=== PATIENT | female | born 1985 | race African-American/Black ===

== ENCOUNTER 2023-01-13 10:07 | Outpatient (AMB) | payer OTHER, SELFPAY ==
--- NOTE | 2023-01-13 10:12 | A.OFFVIS_ITS ---
Intake Vital Signs 01/13/23 10:16 Height 5 ft 1 in Weight 274 lb BMI 51.8 BP 108/78 Blood Pressure Location Rt brachial Position Sitting Pulse 84 Pulse Source Pulse Oximeter Pulse Oximetry (%) 97 Oxygen Delivery Method Room Air Intake Visit Reasons: [employer] [facility] [facility]: Headache Intake Note: Patient presents for seizures. Patient states The most recent seizure I had convulsion 2 weeks apart and I've never had convulsion, I have what you call, conscious seizures. . Allergies amoxicillin Allergy (Mild, Verified 01/13/23 10:18) thrush lactose Allergy (Unknown, Verified 01/06/23 10:39) Unknown simvastatin Allergy (Unknown, Verified 01/06/23 10:39) Unknown Medication List - Last Reconciled 01/13/23 by TERRY Jon amitriptyline 10 mg PO BEDTIME aspirin 500 mg PO Q6H cetirizine 10 mg PO DAILY cholecalciferol (vitamin D3) 50 mcg PO DAILY colchicine (gout) 0.6 mg PO BID ezetimibe (Zetia) 10 mg PO DAILY metformin 500 mg PO DAILY rosuvastatin mg PO HPI HPI Comments History of Present Illness Details Right-handed 37-yr-old female presents for new pt evaluation of seizure and headache disorder. Pt reports in approx [id number], she developed right sided headaches, right- sided weakness, which were not responding to conservative treatments. Then she started having episodes of right eye vision loss and then right optic nerve i nflammation. Brain MRI showed right frontal brain tumor. She underwent tumor resection by Dr Felisha Joe, which was shown to be a malignant meningioma, and she then had 8-9 week course of radiation. Approx a year later, she started having episodes of bilateral finger stiffness not a/w LOC. EEG- showed intracerebral irritability. Dr Durán diagnosed her w/ epilepsy, and started her on Keppra. After she started Keppra, she would have conscious seizures - she would feel weak, dazed, limp, needs to lay down x's 5 minutes, afterwards she feels ok but maybe a bit sleepy. This would occur 1-2 x's every 5 months. When frequency would increase, her Keppra was increased to 1,000mg bid and since she would just have a rare episode. Pt states that everything was going well, until October 2022, she was on vacation in [place], getting ready to go to bed, was standing up looking at the TV, sat down, and next thing she knows she is sitting on the edge of the bed, feeling confused, her shoulders were jerking, her feet felt heavy. She was able to walk to the room across the vargas. She was tapping her cousin, her cousin told her that her hands were cold and clenched, she was repeatedly tapping, not responding to her name, her head started jerking back and forth, and the whole body started shaking. She did vomit some, but no tongue biting or incontinence. The episode lasted 10-15 minutes. The next thing pt knew, she was in the [facility] ER. In the ER, she was monitored, she had head CT and was discharged on her usual regimen. Then once home, a week later, she had another similar episode, she was in her own bed. The collections technician had to give a shot to stop the seizure and she required intubation to maintain her airway. After the episode, she was very sleepy. She was admitted to [facility]. Had MRI- showed stable right- fraontal post-surgical changes, as well as bilateral cerebral microhemorhhages d/t ? hx radiation, amyloid angiopathy, vasculitis. Work-up was otherwise unremarkable for systemic or infectious etiology of breakthrough convulsive seizures. Keppra was increased to 1500mg bid and topiramate and amitriptyline was resumed. Her last EEG was in [id number]. After the meningioma resection, she developed right-sided to holocranial migraine and photophobia. Frequency varies- usually 3 times per month, but since October when she started Ibuprofen 800mg tid w/ colchicine 0.6mg bid for pericarditis she has not had a single migraine attack. She also developed right eye twitch, which Dr Matthews ordered low dose Amitriptyline for, which helps. Current acute medication use/interventions: Nothing prn Previous acute medication use: Sumatriptan- did not tolerate- causes her to be whoozy and tired. Current preventative medication use: Ibuprofen scheduled. Previous preventative medication use: Topiramate - was helpful, but has run out again. Trigger point injections- not tolerated. Non-pharmacological interventions: Ice cap. 01/02/23 WBC 4.9 RBC ?3.99 Hgb ?10.4 Hct ?33.5 MCV 84.0 Sodium 142 Potassium ?3.5 Chloride ?111 Bicarbonate Level ?19 Anion Gap 12 Glucose Level 78 BUN 7 Creatinine-Blood 0.5 Estimated GFR Crea tinine *122 Calcium ?7.3 Calcium, Ionized p H Corrected ?1.05 Magnesium 1.6 Protein, Total ?5.2 Albumin ?3.2 AG Ratio 1.6 Alkaline Phosphata se 76 Lipase 16 AST (SGOT) 14 ALT (SGPT) 13 Bilirubin, Total 0.2 C-Reactive Protein <0.3 11/21/22, MRI Brain W+W/O Contrast MRI Brain W+W/O Contrast COMPARISON: MRI brain 01/09/2011. FINDINGS: BRAIN and EXTRA-AXIAL SPACES: There has been prior right frontal craniotomy. There is dural thickening and enhancement subjacent to the craniotomy flap, measuring up to 2 mm in thickness. This is roughly similar to the prior examination of 2010 allowing for difference in imaging technique. No new nodularity is seen. There is underlying encephalomalacia in the right superior frontal lobe, with cortical defect and adjacent T2 prolongation compatible with gliosis. There is ex vacuo dilatation of the right lateral ventricle. No other abnormal intracranial enhancement is seen. There is no mass effect, midline shift, or effacement of the basal cisterns. On diffusion weighted imaging, there are no regions of restricted diffusion to indicate an acute or subacute infarct. On susceptibility weighted imaging, there are innumerable punctate foci of susceptibility artifact in bilateral cerebral hemispheres, predominantly in the frontal white matter bilaterally, with several additional foci of more posteriorly in the centrum semiovale and periatrial white matter. There is no space-occupying or acute hematoma. Few small foci of T2 prolongation are noted in the subcortical and deep white matter, nonspecific. The midline structures are unremarkable. Mesial temporal lobes appear normal and symmetric in size, signal, and contour. No cortical malformation or heterotopia is seen. Ventricles, cisterns, and sulci are mildly prominent, consistent with mild volume loss greatest in the right frontal lobe, without hydrocephalus. No abnormal extra-axial fluid collections are seen. Major intracranial flow voids are present. EXTRACRANIAL SOFT TISSUES: Orbits are unremarkable. Paranasal sinuses and mastoids are unremarkable. BONES: Marrow signal is preserved. IMPRESSION: 1. Right frontal post surgical changes again noted, with smooth dural thickening and enhancement subjacent to the craniotomy which appears grossly similar to 2011, likely chronic granulation tissue. No new nodularity or mass effect. 2. Encephalomalacia in the underlying r ight frontal lobe with areas of cortical disruption and gliosis also appears similar to prior. 3. Innumerable punctate foci of microhe morrhage in the brain bilaterally, greatest in bilateral frontal lobes. Correlate with any clinical history of radiation. Differential considerations also include embolic disease, prior trauma, vasculitis or other small vessel pathology; while cerebral amyloid angiopathy can have this appearance, it would be unlikely in this demographic. No space-occupying hematoma. PFSH Medical History (Updated 01/13/23 @ 21:49 by TERRY Jon) HLD (hyperlipidemia) Surgical History (Updated 01/13/23 @ 10:22 by CUAUHTEMOC Rebollar) H/O knee surgery H/O brain surgery H/O section Hx of bilateral breast reduction surgery Hx laparoscopic cholecystectomy Family History (Updated 01/13/23 @ 10:23 by CUAUHTEMOC Rebollar) Maternal Grandmother Breast cancer in female Maternal Grandfather Cancer, colon Father Heart attack Son Seizure Diabetes Autism Social History (Updated 01/13/23 @ 10:23 by CUAUHTEMOC Rebollar) Alcohol intake: never Patient Tobacco Use Status: Never used Tobacco Review of Systems Const Details: See scanned ROS form Physical Exam Vital Signs: Last Vital Signs Pulse 84 01/13/23 10:16 BP 108/78 01/13/23 10:16 Pulse Ox 97 01/13/23 10:16 Oxygen Delivery Method Room Air 01/13/23 10:16 BMI result Body Mass Index 51.8 Const Orientation/consciousness: patient oriented x3 HEENT Other: No palpable scalp tenderness. Resp Effort & Inspection: normal respiratory effort and able to speak in complete sentences Neuro General: patient oriented x3 Cranial nerves: Yes CN's II-XII intact bilaterally Cognition (Neuro): normal cognition Gait exam (Neuro): Normal gait present Motor exam (neuro): 5/5 motor strength present throughout Deep tendon reflexes (DTR's): Right triceps reflex intensity grade: 2+, Left triceps reflex intensity grade: 2+, Rt Biceps (C5, C6): 2+, Left biceps reflex intensity grade: 2+, Right brachioradialis reflex intensity grade: 2+, Left brachioradialis reflex intensity grade: 2+, Right patellar reflex intensity grade: 2+ and Left patellar reflex intensity grade: 2+ Coordination: [id number] test normal and Romberg test negative Pupils: Normal pupillary reactivity/response: bilateral Psych Appearance: grossly normal Mental Status: mental status grossly normal Speech and movement: Normal speech and movement present Affect: normal affect Attitude: cooperative Thought process: Normal thought process present Assessment & Plan Assessment & Plan (1) Seizure disorder: Code(s): G40.909 - Epilepsy, unspecified, not intractable, without status epilepticus (2) History of brain tumor: Comment: s/p resection and radiation Code(s): Z87.898 - Personal history of other specified conditions (3) Migraine without aura: Code(s): G43.009 - Migraine without aura, not intractable, without status migrainosus (4) Pericarditis: Code(s): I31.9 - Disease of pericardium, unspecified (5) Snoring: Code(s): R06.83 - Snoring (6) Sleep difficulties: Code(s): G47.9 - Sleep disorder, unspecified (7) Fatigue: Code(s): R53.83 - Other fatigue Plan Pt advised to undergo In-lab PSG to assess for sleep apnea in setting of pt w/ BMI > 50. Pt advised to undergo EEG Pt advised to undergo f/u brain MRI w/wo- to assess for any progression of bilateral cerebral microhemorhages- due between Feb 2023-May 2023 For seizure: Continue Keppra 1500mg q 12hrs Will supply small supply of Clonazepam 2mg ODT for breakthrough seizure lasting > 2 min. For migraine: Continue Amitriptyline 10mg qhs Resume Topiramate up to 50mg bid- may help reduce seizure risk as well. [place] contraindications- Triptans d/t seizure activity Future considerations- Gepant. Orders: Orders EEG electroencephalogram 01/13/23 G40.909 - Epilepsy, unspecified, not intractable, without status epilepticus RT PSG in-lab sleep study 01/13/23 G40.909 - Epilepsy, unspecified, not intractable, without status epilepticus, R06.83 - Snoring, G47.9 - Sleep disorder, unspecified, R53.83 - Other fatigue, E66.01 - Morbid (severe) obesity due to excess calories, Z68.43 - Body mass index [BMI] 50.0-59.9, adult MR head/brain wo/w con 02/26/23 R90.89 - Other abnormal findings on diagnostic imaging of central nervous system, Z87.898 - Personal history of other specified conditions, G40.909 - Epilepsy, unspecified, not intractable, without status epilepticus, G43.009 - Migraine without aura, not intractable, without status migrainosus Medications: New topiramate 1 tab qhs x's 1 wk, 1 tab bid x's 1 wk, 2 tabs bid orally bedtime; 120 tabs 3RF 30 days clonazepam 1 tab in cheek prn seizure lasting > 2 minutes, MR x's 1 translingually . PRN; 5 tabs 2RF seizures 30 days MDD 2 Coding Level of Care Code New Pt Level 4 (49482) Diagnoses Seizure disorder G40.909 History of brain tumor Z87.898 Migraine without aura G43.009 Pericarditis I31.9 Snoring R06.83 Sleep difficulties G47.9 Fatigue R53.83
[2023-01-13 10:16] VITALS: BP 108/78; PULSE 84; O2SAT 97; BMI 51.8
== END 2023-01-13 11:30 | disposition home or self-care (01) ==
PROVIDERS: Visit Provider Nurse Practitioner Family
DX: G40.909 Epilepsy, unspecified, not intractable, without status epilepticus (principal); Z87.898 Personal history of other specified conditions; G43.009 Migraine without aura, not intractable, without status migrainosus; I31.9 Disease of pericardium, unspecified; R06.83 Snoring; G47.9 Sleep disorder, unspecified; R53.83 Other fatigue
CPT/HCPCS: 99204

== ENCOUNTER → 2023-01-13 10:07 | Outpatient (BNVA) | payer OTHER, SELFPAY | PROVIDERS: Visit Provider Nurse Practitioner Family ==

== ENCOUNTER 2023-02-19 13:05 | Outpatient (REF) | payer OTHER, SELFPAY ==
--- NOTE | 2023-02-19 13:10 | EEG_ITS ---
This is a 16-channel EEG with an EKG lead. The patient is reported awake during the tracing. Background EEG rhythm is 14-20 hertz 5 to 30 microvolt posteriorly and lower amplitude fast anteriorly. Photic stimulation does not produce any significant abnormality. Hyperventilation is not performed. Cardiac lead does not reveal any significant abnormality. No sharp wave spikes or paroxysmal tendency noted. IMPRESSION: No significant abnormality noted on this EEG. MD PAMELA Casas/BANDAR / [id number]
== END 2023-02-19 13:06 | disposition home or self-care (01) ==
LOC: HO.NEURO 13:05
PROVIDERS: PCP Internal Medicine; Visit Provider Nurse Practitioner Family
DX: G40.909 Epilepsy, unspecified, not intractable, without status epilepticus (principal)
CPT/HCPCS: 95816

== ENCOUNTER → 2023-03-02 20:30 | Outpatient (BNV) | payer OTHER, SELFPAY | PROVIDERS: PCP Internal Medicine; Visit Provider Psychiatry & Neurology Neurology | DX: R06.83 Snoring (principal) | CPT/HCPCS: 95810 ==

== ENCOUNTER → 2023-03-02 21:09 | Outpatient (REF) | payer OTHER, SELFPAY | LOC: HO.SL 21:09 | PROVIDERS: PCP Internal Medicine; Visit Provider Nurse Practitioner Family | DX: G47.9 Sleep disorder, unspecified (principal); R06.83 Snoring; G40.909 Epilepsy, unspecified, not intractable, without status epilepticus | CPT/HCPCS: 95810 ==

== ENCOUNTER 2023-03-25 09:04 | Outpatient (REF) | payer OTHER, SELFPAY | END 2023-03-25 09:05 | disposition home or self-care (01) | LOC: HO.MRI 09:04 | PROVIDERS: PCP Internal Medicine; Visit Provider Nurse Practitioner Family | DX: Z13.89 Encounter for screening for other disorder (principal) ==

== ENCOUNTER 2023-04-24 12:54 | Outpatient (AMB) | payer OTHER, SELFPAY ==
[2023-04-24 13:05] VITALS: BP 118/80; PULSE 82; O2SAT 97; BMI 51.1
--- NOTE | 2023-04-24 13:05 | A.OFFVIS_ITS ---
Intake Vital Signs 04/24/23 13:05 Height 5 ft 1 in Weight 270 lb 8 oz BMI 51.1 BP 118/80 Blood Pressure Location Rt brachial Position Sitting Pulse 82 Pulse Source Pulse Oximeter Pulse Oximetry (%) 97 Oxygen Delivery Method Room Air Intake Visit Reasons: 3 mnts f/u for migraines-LVM Intake Note: Patient presents for 3 mo fu- Migraines. Rotary Adjuster Required: No Accompanied by: Self / Same As Patient Allergies amoxicillin Allergy (Mild, Verified 04/24/23 13:09) thrush lactose Allergy (Unknown, Verified 04/24/23 13:09) Unknown simvastatin Allergy (Unknown, Verified 04/24/23 13:09) Unknown Medication List - Last Reconciled 04/24/23 by TERRY Jon amitriptyline 10 mg PO BEDTIME aspirin 500 mg PO Q6H cetirizine 10 mg PO DAILY cholecalciferol (vitamin D3) 50 mcg PO DAILY clonazepam 1 tab in cheek prn seizure lasting > 2 minutes, MR x's 1 translingually . PRN; 30 days MDD 2 ezetimibe (Zetia) 10 mg PO DAILY metformin 500 mg PO DAILY rosuvastatin mg PO topiramate 25 mg PO BEDTIME HPI HPI Comments History of Present Illness Details 37-yr-old female presents for f/u visit. No recent pericarditis s/s. She was advised she could stop colchicine. She did have f/u testing for lupus- so far work-up has been negative. Pt is noticing more headaches, which she attributes to not being able to sleep d/t having new noisy neighbors. She is now having 4 migraine days per week. She is compliant w/ Topiramate and Amitriptyline. Using Excedrin 2 tabs prn. No interval seizure activity. Compliant w/ Keppra 1500mg bid. She was unable to do the brain MRI- was claustrophobic. Her PSG was normal- AHI 1/hr w/ O2 dee 93%. EEG- normal PFSH Medical History (Updated 01/13/23 @ 21:49 by TERRY Jon) HLD (hyperlipidemia) Surgical History H/O knee surgery H/O brain surgery H/O section Hx of bilateral breast reduction surgery Hx laparoscopic cholecystectomy Family History Maternal Grandmother Breast cancer in female Maternal Grandfather Cancer, colon Father Heart attack Son Seizure Diabetes Autism Social History Alcohol intake: never Patient Tobacco Use Status: Never used Tobacco Review of Systems Const All systems reviewed & are unremarkable except as noted in HPI and below Physical Exam Vital Signs: Last Vital Signs Pulse 82 04/24/23 13:05 BP 118/80 04/24/23 13:05 Pulse Ox 97 04/24/23 13:05 Oxygen Delivery Method Room Air 04/24/23 13:05 BMI result Body Mass Index 51.1 Const General: cooperative and no acute distress Orientation/consciousness: patient oriented x3 HEENT Head: Yes normocephalic Resp Effort & Inspection: normal respiratory effort and able to speak in complete sentences Neuro General: patient oriented x3, gait normal and CN's II-XI intact bilaterally Cognition (Neuro): normal cognition Motor exam (neuro): 5/5 motor strength present throughout Psych Appearance: grossly normal Mental Status: mental status grossly normal Speech and movement: Normal speech and movement present Affect: normal affect Attitude: cooperative Thought process: Normal thought process present Thought content: Normal thought content present Insight: Good insight present (Psych) Judgement: Good judgement present (Psych) Assessment & Plan Assessment & Plan (1) Migraine without aura: Code(s): G43.009 - Migraine without aura, not intractable, without status migrainosus (2) Seizure disorder: Code(s): G40.909 - Epilepsy, unspecified, not intractable, without status epilepticus (3) History of brain tumor: Comment: s/p resection and radiation Code(s): Z87.898 - Personal history of other specified conditions (4) Abnormal brain MRI: Code(s): R90.89 - Other abnormal findings on diagnostic imaging of central nervous system (5) Sleep difficulties: Code(s): G47.9 - Sleep disorder, unspecified Plan Reviewed In-lab PSG - normal. Pt advised to undergo EEG Pt again advised to undergo f/u brain MRI w/wo- to assess for any progression of bilateral cerebral microhemorhages- pt request now at [facility] w/ open MRI an dpre- medication. ? For seizure: Continue Keppra 1500mg q 12hrs Clonazepam 2mg ODT for breakthrough seizure lasting > 2 min. ? For migraine: Try using ear plugs- foam or reusable versions such as Loop- to help w/ sleep and noise sensitivity. Try using green light bulbs- to help w/ light sensitivity. Continue Amitriptyline 10mg qhs Increase Topiramate from 25mg qhs to 50mg bid- may help reduce seizure risk as well. TX contraindications- Triptans d/t seizure activity Future considerations- Gepant. f/u in 3-4 months or sooner prn Medications: New levetiracetam (Keppra) 1,500 mg PO Q12H alprazolam 0.25 mg orally 1 tab 30 minutes prior to MRI, may repeat x's 1; 1 day 2 tabs 0RF Changed From topiramate 25 mg PO BEDTIME To topiramate 50 mg (2 x 25 mg) PO BEDTIME 30 days 60 tabs 3RF Coding Level of Care Code Est Pt Level 4 (60038) Diagnoses Migraine without aura G43.009 Seizure disorder G40.909 History of brain tumor Z87.898 Abnormal brain MRI R90.89 Sleep difficulties G47.9
== END 2023-04-24 13:50 | disposition home or self-care (01) ==
PROVIDERS: PCP Internal Medicine; Visit Provider Nurse Practitioner Family
DX: G43.009 Migraine without aura, not intractable, without status migrainosus (principal); G40.909 Epilepsy, unspecified, not intractable, without status epilepticus; Z87.898 Personal history of other specified conditions; R90.89 Other abnormal findings on diagnostic imaging of central nervous system; G47.9 Sleep disorder, unspecified
CPT/HCPCS: 99214

== ENCOUNTER → 2023-04-24 12:54 | Outpatient (BNVA) | payer OTHER, SELFPAY | PROVIDERS: PCP Internal Medicine; Visit Provider Nurse Practitioner Family | DX: G43.009 Migraine without aura, not intractable, without status migrainosus (principal); G40.909 Epilepsy, unspecified, not intractable, without status epilepticus; G47.9 Sleep disorder, unspecified; R90.89 Other abnormal findings on diagnostic imaging of central nervous system; Z87.898 Personal history of other specified conditions | CPT/HCPCS: 99212 ==

== ENCOUNTER → 2023-07-18 09:48 | Outpatient (BNVA) | payer OTHER, SELFPAY | PROVIDERS: PCP Internal Medicine; Visit Provider Nurse Practitioner Family ==

== ENCOUNTER 2023-12-10 14:29 | Outpatient (AMB) | payer OTHER, SELFPAY ==
--- NOTE | 2023-12-10 14:18 | A.OFFVIS_ITS ---
Vital Signs 12/10/23 14:42 Height 5 ft 1 in Weight 260 lb BMI 49.1 Intake Visit Reasons: Follow up - CONF Intake Note: Patient presents for follow up. just got out the hospital 2 weeks ago for a seizure episode. Allergies amoxicillin Allergy (Mild, Verified 12/10/23 14:45) thrush lactose Allergy (Unknown, Verified 12/10/23 14:45) Unknown simvastatin Allergy (Unknown, Verified 12/10/23 14:45) Unknown Medication List - Last Reconciled 12/10/23 by TERRY Jon alprazolam 0.25 mg orally 1 tab 30 minutes prior to MRI, may repeat x's 1; 1 day amitriptyline 10 mg PO BEDTIME aspirin 500 mg PO Q6H cetirizine 10 mg PO DAILY cholecalciferol (vitamin D3) 50 mcg PO DAILY clonazepam 1 tab in cheek prn seizure lasting > 2 minutes, MR x's 1 translingually . PRN; 30 days MDD 2 ezetimibe (Zetia) 10 mg PO DAILY levetiracetam (Keppra) 1,500 mg PO Q12H metformin 500 mg PO DAILY rosuvastatin mg PO topiramate 50 mg (2 x 25 mg) PO BEDTIME 30 days HPI Comments Details: 38-yr-old female presents for f/u visit. Pt denies any significant interval medical changes. Pt asking if she could consider in next year or so. Has started new tx for pericarditis- unsure of effect yet, but no recent exacerbations. Pt reports her last seizure was last year. She is compliant w/ Keppra. Brain MRI showed expected post-surgical right frontal craniotomy, otherwise unremarkable. Pt is noticing more headaches She is having 3+ migraine days per week. She is compliant w/ Topiramate- helps w/ facial twitching a/w migraine and Amitriptyline. Era plugs have been very helpful Using Excedrin 2 tabs prn- not always effective PFSH Medical History HLD (hyperlipidemia) Surgical History H/O knee surgery H/O brain surgery H/O section Hx of bilateral breast reduction surgery Hx laparoscopic cholecystectomy Family History Maternal Grandmother Breast cancer in female Maternal Grandfather Cancer, colon Father Heart attack Son Seizure Diabetes Autism Social History Alcohol intake: never Patient Tobacco Use Status: Never used Tobacco Physical Exam Vital Signs: BMI result Body Mass Index 49.1 Const General: cooperative and no acute distress Orientation/consciousness: patient oriented x3 Resp Effort & Inspection: normal respiratory effort and able to speak in complete sentences Neuro General: patient oriented x3 Cranial nerves: Yes CN's II-XII intact bilaterally Cognition (Neuro): normal cognition Psych Appearance: grossly normal Mental Status: mental status grossly normal Speech and movement: Normal speech and movement present Affect: normal affect Attitude: cooperative Results Reviewed Results Reviewed: Exam Date:?06/24/2023 PROCEDURE: MR BRAIN w + wo CONTRAST INDICATION: Bilateral cerebral microhemorrhages. Right head pain. Brain tumor removed 2017 right frontal region. Epilepsy. Migraines. TECHNIQUE: Multi-planar, multi-sequence MR imaging of the brain was performed without and with intravenous contrast. Dotarem 20 mL was administered intravenously. COMPARISON: None available. FINDINGS: Postoperative changes RIGHT frontal craniotomy. Underlying anterior RIGHT frontal encephalomalacia and gliosis. No associated mass effect. No abnormal enhancement. No additional parenchymal signal abnormality. No hydrocephalus, midline shift or herniation. Major intracranial flow voids are present. Paranasal sinuses, middle ears and mastoid air cells are clear. No acute orbital abnormality. IMPRESSION: Postoperative changes RIGHT frontal lobe. No findings of an acute intracranial process or abnormal enhancement. No priors are available for comparison. Assessment & Plan Assessment & Plan (1) Seizure disorder: Code(s): G40.909 - Epilepsy, unspecified, not intractable, without status epilepticus Category: Medical (2) History of brain tumor: Comment: s/p resection and radiation Code(s): Z87.898 - Personal history of other specified conditions Category: Medical (3) Migraine without aura: Code(s): G43.009 - Migraine without aura, not intractable, without status migrainosus Category: Medical Plan In-lab PSG - normal. EEG- unremarkable Reviewed brain MRI w/wo images and report w/ pt- unremarkable w/ exception of known right frontal craniotomy and encephalomalacia. In term sof , from a neurological perspective, I do not see any absolute contraindications. However, pt should see a high risk prgnancy consult. She would need to stop Topiramate, Ubrelvy. Also should start MVI, folic acid prior to actively trying to become - no risk now, pt would need IVF consult. She is aware that she would need to discuss this w/ her cardiology team as well. ? For seizure: Continue Keppra 1500mg q 12hrs Clonazepam 2mg ODT for breakthrough seizure lasting > 2 min. ? For migraine: Continue ear plugs- foam or reusable versions such as Loop- to help w/ sleep and noise sensitivity. May try green light bulbs- to help w/ light sensitivity. Continue Amitriptyline 10mg qhs Continue Topiramate from 25mg qhs to 50mg bid- may help reduce seizure risk as well. Trial Ubrelvy 100mg prn, MR in 2hrs, max 200mg/day [place] contraindications- Triptans d/t pericarditis, seizure d/o Future considerations- Gepant. ? f/u in 3-4 months or sooner prn Medications: New ubrogepant (Ubrelvy) take at onset of migraine, may repeat in 2hrs (may take w/ Ibuprofen) 50 - 100 mg (0.5 - 1 x 100 mg) PO ONCE PRN 16 tabs 3RF migraine headache 30 days rilonacept (Arcalyst) 160 mg subcut Q7D Coding Level of Care Code Est Pt Level 4 (99633) Diagnoses Seizure disorder G40.909 History of brain tumor Z87.898 Migraine without aura G43.009 MIDAS Questionnaire Migraine Disability Assessment Test On how many days in the last 3 months did you miss work or school because of your headaches?: 5+ How many days in the last 3 months was your productivity at work or school reduced by hald or more because of your headaches?: 5+ On how many days in the last 3 months did you not do household (such as housework, home repairs and maintenance, shopping, caring for children or rel atives) because of your headaches?: 5+ How many days in the last 3 months was your productivity in household work reduced by half or more because of your headaches?: 5+ On how many days in the last 3 months did you miss family, social or leisure activities because of your headaches?: 5+ On how many days in the last 3 months did you have a headache?: 5+ On a scale of 0-10, on average how painful were these headaches?: 5+ Score: 25
[2023-12-10 14:42] VITALS: BMI 49.1
== END 2023-12-10 15:40 | disposition home or self-care (01) ==
PROVIDERS: PCP Internal Medicine; Visit Provider Nurse Practitioner Family
DX: G40.909 Epilepsy, unspecified, not intractable, without status epilepticus (principal); Z87.898 Personal history of other specified conditions; G43.009 Migraine without aura, not intractable, without status migrainosus
CPT/HCPCS: 99214

== ENCOUNTER → 2023-12-10 14:29 | Outpatient (BNVA) | payer OTHER, SELFPAY | PROVIDERS: PCP Internal Medicine; Visit Provider Nurse Practitioner Family | DX: G40.909 Epilepsy, unspecified, not intractable, without status epilepticus (principal); G43.009 Migraine without aura, not intractable, without status migrainosus; Z87.898 Personal history of other specified conditions | CPT/HCPCS: 99212 ==

== ENCOUNTER 2024-06-23 09:10 | Outpatient (AMB) | payer OTHER, SELFPAY ==
--- NOTE | 2024-06-23 09:15 | A.OFFVIS_ITS ---
Vital Signs 06/23/24 09:16 Height 5 ft 1 in Weight 272 lb BMI 51.4 BP 110/82 Blood Pressure Location Rt brachial Position Sitting Pulse 75 Pulse Source Pulse Oximeter Pulse Oximetry (%) 98 Oxygen Delivery Method Room Air Intake Visit Reasons: 6mo F/U Intake Note: Patient presents follow up Seizure/migraine medication Embryology Professor Required: No Accompanied by: Self / Same As Patient Allergies amoxicillin Allergy (Mild, Verified 06/23/24 09:18) thrush lactose Allergy (Unknown, Verified 06/23/24 09:18) Unknown simvastatin Allergy (Unknown, Verified 06/23/24 09:18) Unknown Medication List - Last Reconciled 06/23/24 by TERRY Jon alprazolam 0.25 mg orally 1 tab 30 minutes prior to MRI, august repeat x's 1; 1 day amitriptyline 10 mg PO BEDTIME aspirin 500 mg PO Q6H cetirizine 10 mg PO DAILY cholecalciferol (vitamin D3) 50 mcg PO DAILY clonazepam 1 tab in cheek prn seizure lasting > 2 minutes, MR x's 1 translingually . PRN; 30 days MDD 2 ezetimibe (Zetia) 10 mg PO DAILY levetiracetam (Keppra) 1,500 mg PO Q12H metformin 500 mg PO DAILY rilonacept (Arcalyst) 160 mg subcut Q7D rosuvastatin mg PO topiramate 50 mg (2 x 25 mg) PO BEDTIME 30 days ubrogepant (Ubrelvy) 50 - 100 mg (0.5 - 1 x 100 mg) PO ONCE PRN 30 days HPI Comments Details: The patient is a 38-year-old female presenting with follow-up for migraines, iron deficiency anemia, and concerns related to recently being told she has systemic lupus erythematosus. She currently uses Ubrelvy for the management of migraines which have shown improvement, with reduced frequency from her prior ibuprofen management. The patient has a history of seizure disorder, managed with Keppra and topiramate, without complications from her current treatment regimen. Anemia was initially indicated by low ferritin levels, leading to the use of iron supplements. She reports persistent fatigue, a symptom of anemia. She is concerned about the possible systemic lupus erythematosus diagnosis. She does endorse chronic facial rash and joint pain she experiences daily. She treats the facial rash with facial rash with hydrocortisone and Eucerin mixture- which helps, but generally uses make-up to cover it up. She is awaiting further evaluation and treatment options from a technology training associate to explore potential management options, noting that specific tests, including complement C3 C4 and anti-DNA antibodies, have not yet been performed to confirm the diagnosis. Review of Systems- Hematologic: Reports fatigue. - Dermatologic: Reports daily facial rash. - Neurologic: Denies restless leg syndrome, seizures; reports improvement in headaches with Ubrelvy. - Musculoskeletal: Reports joint pain. - General: Reports extreme tiredness. PFSH Medical History HLD (hyperlipidemia) Surgical History H/O knee surgery H/O brain surgery H/O section Hx of bilateral breast reduction surgery Hx laparoscopic cholecystectomy Family History Maternal Grandmother Breast cancer in female Maternal Grandfather Cancer, colon Father Heart attack Son Seizure Diabetes Autism Social History Alcohol intake: never Patient Tobacco Use Status: Never used Tobacco Physical Exam Vital Signs: Last Vital Signs Pulse 75 06/23/24 09:16 BP 110/82 06/23/24 09:16 Pulse Ox 98 06/23/24 09:16 Oxygen Delivery Method Room Air 06/23/24 09:16 BMI result Body Mass Index 51.4 Const General: cooperative and no acute distress Orientation/consciousness: patient oriented x3 Resp Effort & Inspection: normal respiratory effort and able to speak in complete sentences Neuro General: patient oriented x3 Cranial nerves: Yes CN's II-XII intact bilaterally Cognition (Neuro): normal cognition Psych Appearance: grossly normal Mental Status: mental status grossly normal Speech and movement: Normal speech and movement present Affect: normal affect Attitude: cooperative Assessment & Plan Assessment & Plan (1) Seizure disorder: Code(s): G40.909 - Epilepsy, unspecified, not intractable, without status epilepticus Category: Medical (2) History of brain tumor: Comment: s/p resection and radiation Code(s): Z87.898 - Personal history of other specified conditions Category: Medical (3) Migraine without aura: Code(s): G43.009 - Migraine without aura, not intractable, without status migrainosus Category: Medical (4) Fatigue: Code(s): R53.83 - Other fatigue Category: Medical (5) Anemia: Code(s): D64.9 - Anemia, unspecified Category: Medical (6) Joint pain: Code(s): M25.50 - Pain in unspecified joint Category: Medical (7) Facial rash: Code(s): R21 - Rash and other nonspecific skin eruption Category: Medical Plan Discussion Notes Throughout the visit, I discussed with the patient that her anemia likely remains unresolved without evidence of repletion, requiring ongoing evaluation and laboratory follow-up. The continued use of Ubrelvy was endorsed, acknowledging reduced migraine episodes. While detailed testing results for autoimmune markers remain pending, current symptoms do underpin potential systemic lupus erythematosus, with rheumatology referral and consultation awaiting those findings. The risk of medication effects and potential overlap in symptom management were elaborated upon, ensuring informed decision-making and agreement on all fronts. Previous work-up: In-lab PSG - normal. EEG- unremarkable Reviewed brain MRI w/wo images and report w/ pt- unremarkable w/ exception of known right frontal craniotomy and encephalomalacia. Plan For anemia and ? autoimmune d/o: * Continue iron supplements as prescribed. * Schedule laboratory tests for CBC, CMP, ferritin, vitamin B12, and folate. * Apply hydrocortisone and Eucerin mixture for facial rash pending rheumatology consult. * Await further autoimmunity testing and rheumatology consultation. * Reach out with any new or worsening symptoms. For seizure: * Continue Keppra 1500mg q 12hrs * Clonazepam 2mg ODT for breakthrough seizure lasting > 2 min. ? For migraine prevention: * Continue ear plugs- foam or reusable versions such as Loop- to help w/ sleep and noise sensitivity. * May try green light bulbs- to help w/ light sensitivity. * Continue Amitriptyline 10mg qhs * Continue Topiramate from 25mg qhs to 50mg bid- may help reduce seizure risk as well. * TX contraindications- CGRP MaBs, depakote/topiramate- d/t desire for For acute migraine tretament: * Continue Ubrelvy 100mg prn, MR in 2hrs, max 200mg/day * TX contraindications- Triptans d/t pericarditis, seizure d/o, depakote/topiramate- d/t desire for f/u in 6 months or sooner prn Orders: Orders Complete Blood Count Auto Diff 06/23/24 D64.9 - Anemia, unspecified, M25.50 - Pain in unspecified joint, R21 - Rash and other nonspecific skin eruption, G40.909 - Epilepsy, unspecified, not intractable, without status epilepticus, R53.83 - Other fatigue Comprehensive Met. Panel 06/23/24 D64.9 - Anemia, unspecified, M25.50 - Pain in unspecified joint, R21 - Rash and other nonspecific skin eruption, G40.909 - Epilepsy, unspecified, not intractable, without status epilepticus, R53.83 - Other fatigue Anti DNA DS Antibody 06/23/24 D64.9 - Anemia, unspecified, M25.50 - Pain in unspecified joint, R21 - Rash and other nonspecific skin eruption, G40.909 - Epilepsy, unspecified, not intractable, without status epilepticus, R53.83 - Other fatigue Complement C3 06/23/24 D64.9 - Anemia, unspecified, M25.50 - Pain in unspecified joint, R21 - Rash and other nonspecific skin eruption, G40.909 - Epilepsy, unspecified, not intractable, without status epilepticus, R53.83 - Other fatigue Vitamin B12 and Folate 06/23/24 D64.9 - Anemia, unspecified, M25.50 - Pain in unspecified joint, R21 - Rash and other nonspecific skin eruption, G40.909 - Epilepsy, unspecified, not intractable, without status epilepticus, R53.83 - Other fatigue TSH reflex Free T4 06/23/24 D64.9 - Anemia, unspecified, M25.50 - Pain in unspecified joint, R21 - Rash and other nonspecific skin eruption, G40.909 - Epilepsy, unspecified, not intractable, without status epilepticus, R53.83 - Other fatigue IRON PROFILE 06/23/24 D64.9 - Anemia, unspecified, M25.50 - Pain in unspecified joint, R21 - Rash and other nonspecific skin eruption, G40.909 - Epilepsy, unspecified, not intractable, without status epilepticus, R53.83 - Other fatigue CRP High Sensitivity 06/23/24 D64.9 - Anemia, unspecified, M25.50 - Pain in unspecified joint, R21 - Rash and other nonspecific skin eruption, G40.909 - Epilepsy, unspecified, not intractable, without status epilepticus, R53.83 - Other fatigue WILMER Reflex Titer and Pattern 06/23/24 D64.9 - Anemia, unspecified, M25.50 - Pain in unspecified joint, R21 - Rash and other nonspecific skin eruption, G40.909 - Epilepsy, unspecified, not intractable, without status epilepticus, R53.83 - Other fatigue Complement C4 06/23/24 D64.9 - Anemia, unspecified, M25.50 - Pain in unspecified joint, R21 - Rash and other nonspecific skin eruption, G40.909 - Epilepsy, unspecified, not intractable, without status epilepticus, R53.83 - Other fatigue Rheumatoid Factor 06/23/24 D64.9 - Anemia, unspecified, M25.50 - Pain in unspecified joint, R21 - Rash and other nonspecific skin eruption, G40.909 - Epilepsy, unspecified, not intractable, without status epilepticus, R53.83 - Other fatigue Vitamin D 25-OH (D2 and D3) 06/23/24 D64.9 - Anemia, unspecified, M25.50 - Pain in unspecified joint, R21 - Rash and other nonspecific skin eruption, G40.909 - Epilepsy, unspecified, not intractable, without status epilepticus, R53.83 - Other fatigue Homocysteine 06/23/24 D64.9 - Anemia, unspecified, M25.50 - Pain in unspecified joint, R21 - Rash and other nonspecific skin eruption, G40.909 - Epilepsy, unspecified, not intractable, without status epilepticus, R53.83 - Other fatigue Methylmalonic Acid 06/23/24 D64.9 - Anemia, unspecified, M25.50 - Pain in unspecified joint, R21 - Rash and other nonspecific skin eruption, G40.909 - Epilepsy, unspecified, not intractable, without status epilepticus, R53.83 - Other fatigue Ferritin 06/23/24 D64.9 - Anemia, unspecified, M25.50 - Pain in unspecified joint, R21 - Rash and other nonspecific skin eruption, G40.909 - Epilepsy, unspecified, not intractable, without status epilepticus, R53.83 - Other fatigue Erythrocyte Sedimentation Rate 06/23/24 D64.9 - Anemia, unspecified, M25.50 - Pain in unspecified joint, R21 - Rash and other nonspecific skin eruption, G40.909 - Epilepsy, unspecified, not intractable, without status epilepticus, R53.83 - Other fatigue Coding Level of Care Code Est Pt Level 4 (20342) Diagnoses Seizure disorder G40.909 History of brain tumor Z87.898 Migraine without aura G43.009 Fatigue R53.83 Anemia D64.9 Joint pain M25.50 Facial rash R21
[2024-06-23 09:16] VITALS: BP 110/82; PULSE 75; O2SAT 98; BMI 51.4
--- OUTSIDE RECORDS SUMMARY | 2024-06-23 10:09 | XMS_ITS | Clinical Summary ---
Author Organization [address] [place] [address] [place] [phone] Phone Care Team Providers Care Criminal Justice Faculty Name Role Phone Mi Ornelas MD Primary Care Provider [phone] Allergies Active Allergy Reactions Criticality Noted Date Comments Amoxicillin 12/05/2021 Atorvastatin Itching 08/15/2015 Lactose 12/05/2021 Other reaction(s): N+V Simvastatin High 03/12/2012 Other Reaction(s): Hives/Urticaria Medications rosuvastatin (CRESTOR) 10 mg tablet Take 1 tablet (10 mg total) by mouth 1 (one) time each day. 02/23/20 24 Active anakinra (Kineret) 100 mg/0.67 mL injection Inject 100 mg into the skin daily. 01/12/20 24 Active cholecalcifero l (VITAMIN D-3) 50 mcg (2,000 unit) tablet Take 1 tablet (2,000 Units total) by mouth 1 (one) time each day. 12/31/19 24 Active acetaminophen (TYLENOL) 500 mg tablet Take 1 tablet (500 mg total) by mouth every 6 (six) hours if needed. 12/17/19 24 Active cyanocobalamin (VITAMIN B-12) 1,000 mcg tablet Take 1 tablet (1,000 mcg total) by mouth 1 (one) time each day. 10/13/19 24 Active cetirizine (ZyrTEC) 10 mg tablet Take 1 tablet (10 mg total) by mouth 1 (one) time each day. 03/05/20 Active hydrocortisone 2.5 % cream Apply locally twice a day 12/10/19 Active SUMAtriptan (IMITREX) 100 mg tablet TAKE 1 TABLET BY MOUTH EVERY DAY NEEDED MIGRAINE 03/21/20 Active ibuprofen (ADVIL,MOTRIN) 600 mg tablet Take 1 Tablet by mouth 3 times daily as needed for Pain. 11/19/19 Active metoprolol tartrate (LOPRESSOR) 25 mg tablet Take 1 tablet (25 mg total) by mouth 2 (two) times a day. Active Ubrelvy 100 mg tablet Take 1 tablet (100 mg total) by mouth 1 (one) time if needed. 02/10/20 Active ferrous sulfate 325 mg (65 mg elemental iron) tablet TAKE 1 TABLET BY MOUTH 3 (THREE) TIMES A DAY WITH MEALS. DO NOT CRUSH, CHEW, OR SPLIT. 270 tablet 04/19/20 Active ezetimibe (ZETIA) 10 mg tablet TAKE 1 TABLET BY MOUTH EVERY DAY 90 tablet 1 04/23/20 24 Active metFORMIN (GLUCOPHAGE) 500 mg tablet TAKE 1 TABLET BY MOUTH EVERY DAY WITH BREAKFAST 90 tablet 1 04/23/20 24 Active amitriptyline (ELAVIL) 25 mg tablet TAKE 1 TABLET BY MOUTH EVERYDAY AT BEDTIME 90 tablet 3 05/31/19 25 Active levETIRAcetam (KEPPRA) 1,000 mg tablet TAKE 1 TABLET BY MOUTH TWICE A DAY 60 tablet 5 06/21/19 25 Active levETIRAcetam (KEPPRA) 1,000 mg tablet Take 1.5 Tablets by mouth 2 times daily. 025 Discontinued amitriptyline (ELAVIL) 25 mg tablet Take 1 tablet (25 mg total) by mouth at bedtime. 05/29/19 24 025 Discontinued Active Problems Problem Noted Date Diagnosed Date NSVT (nonsustained ventricular tachycardia) 02/26 Overview (03/15/2024): - 4 beat run seen during hospitalization at [facility] in January 2024 - Echocardiogram most recently at [facility] on 02/04/2024 showed mild, concentric left ventricular hypertrophy with normal cavity size and systolic function, normal regional wall motion with an ejection fraction of 55 to 60%, normal RV size and systolic function, no pericardial effusion, no hemodynamically significant valve disease - CT angiography of the coronaries in January 2024 was also negative for significant coronary disease - Patient was started on low-dose beta-julio during her January hospitalization Assessment & Plan (03/15/2024 12:54 PM EST): Low risk profile with preserved ejection fraction and no significant coronary disease on recent testing, continue low-dose metoprolol 25 twice daily Morbid obesity with BMI of 50.0-59.9, adult 02/26 Mixed hyperlipidemia 01/04/2022 Overview (03/08/2024): Last Assessment & Plan: Reasonable LDL without known coronary disease. Continue statin and Zetia Assessment & Plan (03/15/2024 12:54 PM EST): Reasonable LDL control, continue current Crestor and Zetia. Prediabetes 01/04/2022 Seizure disorder 01/04/2022 Vitamin B 12 deficiency 01/04/2022 Vitamin D deficiency 01/04/2022 Recurrent idiopathic pericarditis 01/01/2022 Overview (03/15/2024): - Dr Mac from cardiology met her in consultation at [facility] in November 2021 when she came in for atypical chest pain - Prior to that she had had an admission at [facility] for similar atypical chest pain - She ruled out with serial cardiac enzymes both times; at [facility], we also checked an ESR and CRP which were elevated at 1.3 and 95, respectively, and even though EKG was inconsistent with acute pericarditis, I think we had enough data to presumptively treat for acute pericarditis with ibuprofen 800 3 times daily and a tapering dose along with colchicine 0.6 twice daily for 3 months - She did respond to this course of treatment -Lupus anticoagulant not detected and WILMER negative 09/2023 -Subsequent episode 10/2022 again treated with NSAIDs and colchicine, -Another episode summer 2023, initially treated with NSAIDs and colchicine, ineffective, changed to Anakinra as we could not get Arcalyst approved by her insurance company after numerous attempts -She had been on anakinra only for 2 weeks when she was rehospitalized at [facility] from 02/02/2024 to 02/04/2024-again with atypical chest pain but somewhat different than her prior pericarditis episodes -She was seen by my partners in consultation and ruled out with serial cardiac enzymes for acute coronary syndrome, this time, ESR was only mildly elevated with normal CRP and therefore she was worked up for acute coronary syndrome/angina -CT coronary angiography was performed on 02/04/2024 and showed normal left main, normal LAD and branches, normal circumflex, normal ramus, and minimal disease that was calcified in the mid RCA graded as less than 25% with the remainder of the RCA and branches being normal -See nonsustained VT section for further details but briefly, patient had 4 beats of nonsustained VT with reassuring echo during this hospitalization -All lupus testing has been negative but patient continues to have symptoms suggestive of lupus including occasional malar rash, arthralgias that are symmetric at times with swelling of her bilateral ankles Assessment & Plan (03/15/2024 12:54 PM EST): Several hospitalizations for idiopathic recurrent pericarditis but symptoms seem to be well-controlled on anakinra. Thankfully she has not had any issues with daily injections that have been prohibitive. I would like to continue. However, I do still think rheumatology referral will be important as she does have several features of autoimmune disease even though she is seronegative. Continue current anakinra for now. Resolved Problems Problem Noted Date Diagnosed Date Resolved Date Chest pain 01/01/2022 03/15/2024 Overview (03/08/2024): Last Assessment & Plan: This discomfort appears to be quite consistent with pericarditis. Her symptoms are not made worse by exerting herself or climbing stairs. If there is a pattern of progressive discomfort she must be seen again urgently for additional evaluation. . She does have cardiovascular risk factors but she is responding well to her oral agents. Continue with lifestyle risk factor modification Encounters Date Type Department Care Team Description 04/12/2024 9:45 AM EST Office Visit Internal Medicine - [address] [place] [address] Mi Ornelas MD Polyarthralgia (Primary Dx); Anemia, unspecified type; Prediabetes; Recurrent idiopathic pericarditis 04/08/[address] [facility] [address] [facility] [address] [place] [address] India Mac MD Authorization (Kineret 100MG/0.67ML syringes) from Last 3 Months Immunizations Name Administration Dates Next Due DTaP, IPV, Hib, Hepatitis B Combined (Vaxelis) 6wks to less than 5yo 06/04/2023 HPV 9-valent (Gardisil) 9yo to less than 46yo Moderna SARS-CoV-2 COVID-19, mRNA, LNP-S, preservative free 06/04/2023 Surgical History Surgery Date Site/Laterality Comments SECTION 2003 N/A PROCEDURE: [place] DELIVERY ONLY BREAST REDUCTION N/A PROCEDURE: [place] BREAST REDUCTION GASTRIC BYPASS 2006 N/A PROCEDURE: [place] GASTRIC RSTCV W/BYP W/SM INT RCNSTJ LIMIT ABSRPJ CHOLECYSTECTOMY PROCEDURE: LAPAROSCOPY, CHOLECYSTECTOMY OTHER SURGICAL HISTORY PROCEDURE: [place] TRNSRAL SKULL BSE/BR STEM/CORD BX/DCOMPR/EXC LES; COMMENT: tumor removal age 22 Dr. Joe KNEE ARTHROSCOPY Right PROCEDURE: [place] ARTHROSCOPY AID [place] SPINE&/FX KNEE W/O FIXJ Medical History Medical History Date Comments Morbid obesity with BMI of 5 0.0-59.9, adult (CMS/HCC) DX:Morbid obesity with BMI o f 50.0-59.9, adult (HCC) History of brain cancer DX:Histo ry of brain cancer; COMMENT: tumor removal followed via radiation age 22 Seizure disorder (CMS/HCC) DX:Se izure disorder (HCC) Mixed hyperlipidemia DX:Mixed hy perlipidemia Prediabetes DX:Prediabetes Vitamin D deficiency DX:Vitamin D deficiency Vitamin B 12 deficiency DX:Vitam in B 12 deficiency Family History Medical History Relation Name Comments Colon cancer Maternal Grandfather Breast cancer Maternal Grandmother Heart failure Mother Relation Name Status Comments Maternal Grandfather Maternal Grandmother Mother Social History Tobacco Use Types Packs/Day Years Used Date Smoking Tobacco: Never Smokeless Tobacco: Never Alcohol Use Standard Drinks/Week Comments Never 0 (1 standard drink = 0.6 oz pur e alcohol) Housing Instability Answer Date Recorde d Are you worried that in the next 2 months you may not have stable housing? No 04/06/2024 Food Access & Nutrition Answer Date Rec orded Do you have access to a vari ety of food including fruits and vegetables? Yes 04/06/2024 Access to Healthcare Answer Date Record ed Within the last 3 months, ho w many times did you visit the emergency department for your medical care? 2 04/06/2024 Health Literacy Answer Date Recorded How often do you need to hav e someone help you when you read instructions, pamphlets, or other written material from your doctor or pharmacy? Never 04/06/2024 Caregiver: How often do you need to have someone help you when you read instructions, pamphlets, or other written material from your doctor or pharmacy? Not on file 04/06/2024 Financial Risk Answer Date Recorded How hard is it for you to pa y for the very basics like food, housing, medical care, and air conditioning / heating? Somewhat hard 04/06/2024 Transportation Answer Date Recorded Has the lack of transportati on kept you from meetings, work, or from getting things needed for daily living? No Has the lack of transportati on kept you from medical appointments or from getting medications? No 04/06/2024 Social Isolation Answer Date Recorded How often do you feel lonely or isolated from th ose around you? Never 04/06/2024 Food Risk Answer Date Recorded Within the past 12 months we worried whether our food would run out before we got money to buy more. Never true 04/06/2024 Within the past 12 months th e food we bought just didn't last and we didn't have money to get more. Never true 04/06/2024 Dependent Care Answer Date Recorded Do you need help finding or paying for care for your loved ones. For example, child development director or elderly care for an older adult? No 04/06/2024 Education Answer Date Recorded Do you think completing more education or training, like finishing a GED, going to college, or learning a trade, would be helpful for you? N/A 04/06/2024 Employment and Income Answer Date Recor ded During the last four weeks, have you been actively looking for work? Yes 04/06/2024 Living Situation Answer Date Recorded What is your living situation? 1 06/07/2023 Comments Unknown Sex and Gender Information Value Date Recorded Sex Assigned at Not on file Legal Sex Female 10:10 AM EST Gender Identity Not on file Sexual Orientation Not on file Obstetrics History Last Filed Vital Signs Vital Sign Reading Time Taken Comments Blood Pressure 112/80 04/12/2024 9:33 AM EST Pulse 97 04/12/2024 9:33 AM EST Temperature 36.7 ??C (98 ??F) 04/12/2024 9:33 AM EST Respiratory Rate - - Oxygen Saturation 98% 04/12/2024 9:33 AM EST Inhaled Oxygen Concentration - - Weight 118 kg (260 lb 3.2 oz) 04/12/2024 9:33 AM EST Height 154.9 cm (5' 1 ) 04/12/2024 9:33 AM EST Body Mass Index 49.16 04/12/2024 9:33 AM EST Plan of Treatment Upcoming Encounters Date Type Department Care Team (Late st Contact Info) Description 10/13/2024 9:30 AM EDT Office Visit Internal Medicine - [place] [address] [place] [address] Mi Ornelas MD [address] [place] [address] Health Maintenance Due Date Last Done Comments Pneumococcal Vaccine: Pediatrics (0 to 5 Years) and At-Risk Patients (6 to 64 Years) (2 of 2 - PCV) 08/26/2011 08/25/2010 HIV Screening 04/06/2022 Hepatitis C Screening 04/06/2022 Hepatitis B Vaccines (2 of 3 - 19+ 3-dose series) 07/02/2023 06/04/2023, 06/04/2023 IPV Vaccines (2 of 3 - Adult catch-up series) 07/02/2023 06/04/2023 HPV Vaccines (3 - 3-dose SCD M series) 08/27/2023 06/04/2023, 02/22/2021 COVID-19 Vaccine (4 - 2023-2 5 season) 2023 06/04/2023, 10/16/2020, 09/23/2020 Influenza Vaccine (#1) 2023 , 08/25/2010 Depression Screening 04/06/2025 04/06/2024, 04/30/2023 Social Influencers of Health Screening 04/06/2025 04/06/2024 Cervical Cancer Screening: P ap Smear 10/09/2025 10/09/2022 Cholesterol Screening (Lipid Panel) 10/02/2028 10/03/2023, 10/03/2023 DTaP,Tdap,and Td Vaccines (2 - Tdap) 06/04/2033 06/04/2023 HIB Vaccines Aged Out 06/04/2023 No longer eligi ble based on patient's age to complete this topic Hepatitis A Vaccines Aged Out No long er eligible based on patient's age to complete this topic MMR Vaccines Aged Out No longer eligi ble based on patient's age to complete this topic Meningococcal ACWY Vaccine Aged Out N o longer eligible based on patient's age to complete this topic Meningococcal B Vacine Aged Out No lo nger eligible based on patient's age to complete this topic RSV Immunization Patients Under 20 months Aged Out No longer eligible b ased on patient's age to complete this topic Varicella Vaccines Aged Out No longer eligible based on patient's age to complete this topic Procedures Procedure Name Priority Date/Time Associated Diagnosis Comments FERRITIN Routine 04/12/2024 10:10 AM EST Anemia, unspecified type Prediabetes IRON AND TIBC Routine 04/12/2024 10:10 AM EST Anemia, unspecified type Prediabetes HEMOGLOBIN A1C Routine 04/12/2024 10:10 AM EST Anemia, unspecified type Prediabetes LIPID PANEL Routine 10/03/2023 HM DEPRESSION SCREENING Routine 04/30/2023 HM PAP SMEAR Routine 10/09/2022 from Last 3 Months or Most Recently Relevant to Health Maintenance Results * (ABNORMAL) Iron and TIBC (04/12/2024 10:10 AM EST) Iron 18(L) 40 - 150 mcg/dL LAB CHEMISTRY METHOD 04/12/2024 8:17 PM EST [facility] TIBC 531(H) 250 - 450 mcg/dL LAB CHEMISTRY METHOD 04/12/2024 8:17 PM [facility] Iron Saturation 3(L) 15 - 50 % LAB CHEMISTRY METHOD 04/12/2024 8:17 PM EST [facility] Blood Venous blood specimen / Unknown Venipuncture / Unknown 04/12/2024 10:10 AM EST 04/12/2024 10:10 AM EST us Mi Ornelas MD LAB BLOOD ORDERABLES Final Res ult Performing Organization Address City/[facility]/ZIP Co de Phone Number [facility] [address] [place] [address], [place] [phone] * (ABNORMAL) Hemoglobin A1c (04/12/2024 10:10 AM EST) Hemoglobin A1C 6.5(H) <6.5 % LAB CHEMISTRY METHOD 04/12/2024 10:23 PM EST [facility] Mean Bld Glu Estim. 140 mg/dL LAB CHEMISTRY METHOD 04/12/2024 10:23 PM [facility] Blood Venous blood specimen / Unknown Venipuncture / Unknown 04/12/2024 10:10 AM EST 04/12/2024 10:10 AM EST us Mi Ornelas MD LAB BLOOD ORDERABLES Final Res ult [facility] [address] [place] [address], [place] [phone] * (ABNORMAL) Ferritin (04/12/2024 10:10 AM EST) Ferritin 4(L) 8 - 252 ng/mL LAB CHEMISTRY METHOD 04/12/2024 8:25 PM EST [facility] Blood Venous blood specimen / Unknown Venipuncture / Unknown 04/12/2024 10:10 AM EST 04/12/2024 10:10 AM EST Mi Ornelas MD LAB BLOOD ORDERABLES Final Res ult [facility] [address] [place] [address], * Lipid panel (10/03/2023) LDL/HDL Ratio 4 0 - 4 Triglycerides 115 0 - 150 mg/dL Cholesterol 156 0 - 200 mg/dL HDL 44 >=40 mg/dL LDL Cholesterol 89 0 - 100 mg/dL Blood Venous blood specimen / Unknown Historical Provider LAB BLOOD ORDERABLES Sumaya l Result * Depression Screening (04/30/2023) Depression Screening abstracted Historical Provider HEALTH MAINTENANCE Final Result * Pap Smear (10/09/2022) Pap smear no interpretation , abstracted Historical Provider HEALTH MAINTENANCE Final Result from Last 3 Months or Most Recently Relevant to Health Maintenance Insurance [facility] [employer] Care Teams Criminal Justice Faculty Relationship Specialty Start Date End Date Mi Ornelas MD [address] [phone] PCP - General Internal Medicine 03/08/24
== END 2024-06-23 10:04 | disposition home or self-care (01) ==
PROVIDERS: PCP Internal Medicine; Visit Provider Nurse Practitioner Family
DX: G40.909 Epilepsy, unspecified, not intractable, without status epilepticus (principal); Z87.898 Personal history of other specified conditions; G43.009 Migraine without aura, not intractable, without status migrainosus; R53.83 Other fatigue; D64.9 Anemia, unspecified; M25.50 Pain in unspecified joint; R21 Rash and other nonspecific skin eruption
CPT/HCPCS: 99214

== ENCOUNTER 2024-06-23 09:10 | Outpatient (REF) | payer OTHER, SELFPAY ==
--- OUTSIDE RECORDS SUMMARY | 2024-06-23 12:24 | XMS_ITS | Clinical Summary ---
Author Organization [address] [place] [address] [place] [phone] Phone Care Team Providers Care Record Press Tender Name Role Phone Mi Ornelas MD Primary Care Provider Allergies Active Allergy Reactions Criticality Noted Date [...] 4 beat run seen during hospitalization at [facility] in January 2024 - Echocardiogram most recently at [facility] on 02/04/2024 showed mild, concentric left ventricular [...] from cardiology met her in consultation at [facility] in November 2021 when she came in for atypical chest pain - Prior to that she had had an admission at [facility] for similar atypical chest pain - She ruled out with serial cardiac enzymes both times; at [facility], we also checked an ESR and [...] 2 weeks when she was rehospitalized at [facility] from 02/02/2024 to 02/04/2024-again with atypical chest [...] AM EST Office Visit Internal Medicine - [address] [place] [address] Mi Ornelas MD Polyarthralgia (Primary Dx); Anemia, unspecified type; Prediabetes; Recurrent idiopathic pericarditis 04/08/2024 Telephone [facility] [address] [facility] [address] [place] [address] India Mac MD Authorization (Kineret 100MG/0.67ML syringes) from Last 3 Months Immunizations Name Administration Dates Next Due DTaP, IPV, Hib, Hepatitis B Combined (Vaxelis) 6wks to less than 5yo 06/04/2023 HPV 9-valent (Gardisil) 9yo to less than 46yo Moderna SARS-CoV-2 COVID-19, mRNA, LNP-S, preservative free 06/04/2023 Surgical History Surgery Date Site/Laterality Comments SECTION 2003 N/A PROCEDURE[place]IVERY ONLY BREAST REDUCTION N/A PROCEDURE[place] BREAST REDUCTION GASTRIC BYPASS 2006 N/A PROCEDURE: [place] GASTRIC RSTCV W/BYP W/SM INT RCNSTJ LIMIT ABSRPJ CHOLECYSTECTOMY PROCEDURE: LAPAROSCOPY, CHOLECYSTECTOMY OTHER SURGICAL HISTORY PROCEDURE: [place] TRNSRAL SKULL BSE/BR STEM/CORD BX/DCOMPR/EXC LES; COMMENT: tumor removal age 22 Dr. Joe KNEE ARTHROSCOPY Right PROCEDURE: [place] ARTHROSCOPY AID [place] SPINE&/FX KNEE W/O FIXJ [...] care for your loved ones. For example, childcare teacher or elderly care for an older adult? [...] AM EDT Office Visit Internal Medicine - [place] [address] [place] [address] Mi Ornelas MD [address] [place] [address] Health Maintenance Due Date Last [...] LAB CHEMISTRY METHOD 04/12/2024 8:17 PM EST [facility] TIBC 531(H) 250 - 450 mcg/dL LAB CHEMISTRY METHOD 04/12/2024 8:17 PM [facility] Iron Saturation 3(L) 15 - 50 % LAB CHEMISTRY METHOD 04/12/2024 8:17 PM EST [facility] Blood Venous blood specimen / Unknown Venipuncture / Unknown 04/12/2024 10:10 AM EST 04/12/2024 10:10 AM EST us Mi Ornelas MD LAB BLOOD ORDERABLES Final Res ult Performing Organization Address City/[facility]/ZIP Co de Phone Number [facility] [address] [place] [address], [place] [phone] * (ABNORMAL) Hemoglobin A1c (04/12/2024 10:10 AM EST) Hemoglobin A1C 6.5(H) <6.5 % LAB CHEMISTRY METHOD 04/12/2024 10:23 PM EST [facility] Mean Bld Glu Estim. 140 mg/dL LAB CHEMISTRY METHOD 04/12/2024 10:23 PM [facility] Blood Venous blood specimen / Unknown Venipuncture / Unknown 04/12/2024 10:10 AM EST 04/12/2024 10:10 AM EST us Mi Ornelas MD LAB BLOOD ORDERABLES Final Res ult [facility] [address] [place] [address], [place] [phone] * (ABNORMAL) Ferritin (04/12/2024 10:10 AM EST) Ferritin 4(L) 8 - 252 ng/mL LAB CHEMISTRY METHOD 04/12/2024 8:25 PM EST [facility] Blood Venous blood specimen / Unknown Venipuncture / Unknown 04/12/2024 10:10 AM EST 04/12/2024 10:10 AM EST Mi Ornelas MD LAB BLOOD ORDERABLES Final Res ult [facility] [address] [place] [address], * Lipid panel (10/03/2023) LDL/HDL Ratio 4 [...] Most Recently Relevant to Health Maintenance Insurance [facility] [employer] Care Teams Record Press Tender Relationship Specialty Start Date End Date Mi Ornelas MD [address] [phone] PCP - General Internal Medicine 03/08/24
[2024-06-23 18:35] LABS: MANUAL DIFF FLAG NO
[2024-06-23 18:48] LABS: Basophils Percent Auto 0.2 % (0-2); Eosinophils Absolute Auto 0.1 X10*3/uL (0.0-0.4); Hematocrit 36.9 % (37.0-47.0); Hemoglobin 11.5 g/dl (12.0-16.0); Lymphocytes Absolute Auto 2.7 X10*3/uL (1.2-4.9); Lymphocytes Percent Auto 58.8 % (20-40); Mean Corpuscular HGB Conc 31.2 g/dl (31.0-35.0); Mean Corpuscular Hemoglobin 25.7 pg (27.0-33.0); Mean Corpuscular Volume 82.4 fL (80.0-98.0); Mean Platelet Volume 10.6 fL (9.4-12.3); Monocytes Absolute Auto 0.3 X10*3/uL (0.1-1.2); Monocytes Percent Auto 7.5 % (2-11); Neutrophils Absolute Auto 1.4 x10*3/uL (2.0-8.3); Neutrophils Percent Auto 31.5 % (45-73); Platelet Count 230 X10*3/uL (160-400); Red Blood Count 4.48 X10*6/uL (4.20-5.50); Red Cell Distribution Width 20.4 % (11.0-16.0); White Blood Count 4.6 X10*3/uL (4.8-10.8)
[2024-06-23 19:01] LABS: Alanine Aminotransferase 23 U/L (0-31); Albumin Level 3.8 g/dL (3.5-5.0); Alkaline Phosphatase 71 U/L (39-117); Anion Gap 11 (12-20); Aspartate Amino Transferase 24 U/L (5-31); Bilirubin Total 0.3 mg/dL (0.0-1.0); Blood Urea Nitrogen 9 mg/dL (9-16); Calcium 8.8 mg/dL (8.4-10.2); Carbon Dioxide 18 mmol/L (22-29); Chloride 113 mmol/L (96-108); Estimated Glomerular Filt Rate > 60; Glucose Random 91 mg/dL (60-115); Iron 102 mcg/dL (30-160); Percent Iron Saturation 26 % (15-50); Potassium 3.9 mmol/L (3.3-5.1); Sodium 138 mmol/L (135-145); Total Iron Binding Capacity 388 mcg/dL (228-428); Total Protein 7.2 g/dL (6.5-8.0); Unsaturated Iron Binding 286 ug/dL
[2024-06-23 19:16] LABS: Ferritin 10 ng/mL (10-122); TSH reflex Free T4 2.33 uIU/mL (0.32-4.0)
[2024-06-24 09:49] LABS: Complement C3 141 mg/dL (83-193)
[2024-06-25 17:14] LABS: Anti DNA DS Antibody <1 IU/mL
== END 2024-06-23 09:11 | disposition home or self-care (01) ==
LOC: HO.HKASLDS 09:10
PROVIDERS: PCP Internal Medicine; Visit Provider Nurse Practitioner Family
DX: G40.909 Epilepsy, unspecified, not intractable, without status epilepticus (principal); G43.009 Migraine without aura, not intractable, without status migrainosus; D64.9 Anemia, unspecified; M25.50 Pain in unspecified joint; R21 Rash and other nonspecific skin eruption; R53.83 Other fatigue; Z87.898 Personal history of other specified conditions; Z79.899 Other long term (current) drug therapy
CPT/HCPCS: 36415; 80053; 82728; 83540; 84443; 85025; 86160; 86225; 99212

== ENCOUNTER 2024-06-23 11:06 | Outpatient (REF) | payer OTHER, SELFPAY ==
[2024-06-23 12:25] LABS: Rheumatoid Factor < 13.0 IU/mL (<15.0)
[2024-06-23 12:40] LABS: Erythrocyte Sedimentation Rate 14 MM/HR (0-20)
[2024-06-23 13:20] LABS: Folate 7.6 ng/mL (> or = 4.0); Vitamin B12 1005 pg/mL (200-900)
--- OUTSIDE RECORDS SUMMARY | 2024-06-23 13:58 | XMS_ITS | Clinical Summary ---
Author Organization [address] [place] [address] [place] [phone] Phone Care Team Providers Care In Shop Service Technician Name Role Phone Mi Ornelas MD Primary Care Provider [phone] Allergies Active Allergy Reactions Criticality Noted Date [...] 4 beat run seen during hospitalization at [facility] in January 2024 - Echocardiogram most recently at [facility] on 02/04/2024 showed mild, concentric left [...] from cardiology met her in consultation at [facility] in November 2021 when she came in for atypical chest pain - Prior to that she had had an admission at [facility] for similar atypical chest pain - She ruled out with serial cardiac enzymes both times; at [facility], we also checked an ESR and CRP [...] 2 weeks when she was rehospitalized at [facility] from 02/02/2024 to 02/04/2024-again with atypical [...] AM EST Office Visit Internal Medicine - [address] [place] [address] Mi Ornelas MD Polyarthralgia (Primary Dx); Anemia, unspecified type; Prediabetes; Recurrent idiopathic pericarditis 04/08/2024 Telephone [facility] - [facility] [address] [facility] [address] [place] [address] India Mac MD Authorization (Kineret 100MG/0.67ML syringes) from Last 3 Months Immunizations Name Administration Dates Next Due DTaP, IPV, Hib, Hepatitis B Combined (Vaxelis) 6wks to less than 5yo 06/04/2023 HPV 9-valent (Gardisil) 9yo to less than 46yo Moderna SARS-CoV-2 COVID-19, mRNA, LNP-S, preservative free 06/04/2023 Surgical History Surgery Date Site/Laterality Comments SECTION 2003 N/A PROCEDURE: [place] DELIVERY ONLY BREAST REDUCTION N/A PROCEDURE: [place] BREAST REDUCTION GASTRIC BYPASS 2006 N/A PROCEDURE: [place] GASTRIC RSTCV W/BYP W/SM INT RCNSTJ LIMIT ABSRPJ CHOLECYSTECTOMY PROCEDURE: LAPAROSCOPY, CHOLECYSTECTOMY OTHER SURGICAL HISTORY PROCEDURE: [place] TRNSRAL SKULL BSE/BR STEM/CORD BX/DCOMPR/EXC LES; COMMENT: tumor removal age 22 Dr. Joe KNEE ARTHROSCOPY Right PROCEDURE: FL ARTHROSCOPY AID TX SPINE&/FX KNEE W/O FIXJ [...] care for your loved ones. For example, childhood development teacher or elderly care for an older [...] AM EDT Office Visit Internal Medicine - [place] [address] [place] [address] Mi Ornelas MD [address] [place] [address] Health Maintenance Due Date Last [...] LAB CHEMISTRY METHOD 04/12/2024 8:17 PM EST [facility] TIBC 531(H) 250 - 450 mcg/dL LAB CHEMISTRY METHOD 04/12/2024 8:17 PM [facility] Iron Saturation 3(L) 15 - 50 % LAB CHEMISTRY METHOD 04/12/2024 8:17 PM EST [facility] Blood Venous blood specimen / Unknown Venipuncture / Unknown 04/12/2024 10:10 AM EST 04/12/2024 10:10 AM EST us Mi Ornelas MD LAB BLOOD ORDERABLES Final Res ult Performing Organization Address City/[facility]/ZIP Co de Phone Number [facility] [address] [place] [address], [place] [phone] * (ABNORMAL) Hemoglobin A1c (04/12/2024 10:10 AM EST) Hemoglobin A1C 6.5(H) <6.5 % LAB CHEMISTRY METHOD 04/12/2024 10:23 PM EST [facility] Mean Bld Glu Estim. 140 mg/dL LAB CHEMISTRY METHOD 04/12/2024 10:23 PM [facility] Blood Venous blood specimen / Unknown Venipuncture / Unknown 04/12/2024 10:10 AM EST 04/12/2024 10:10 AM EST us Mi Ornelas MD LAB BLOOD ORDERABLES Final Res ult [facility] [address] [place] [address], [place] [phone] * (ABNORMAL) Ferritin (04/12/2024 10:10 AM EST) Ferritin 4(L) 8 - 252 ng/mL LAB CHEMISTRY METHOD 04/12/2024 8:25 PM EST [facility] Blood Venous blood specimen / Unknown Venipuncture / Unknown 04/12/2024 10:10 AM EST 04/12/2024 10:10 AM EST Mi Ornelas MD LAB BLOOD ORDERABLES Final Res ult [facility] [address] [place] [address], * Lipid panel (10/03/2023) LDL/HDL Ratio 4 [...] Most Recently Relevant to Health Maintenance Insurance [facility] [employer] [facility] Care Teams In Shop Service Technician Relationship Specialty Start Date End Date Mi Ornelas MD [address] [phone] PCP - General Internal Medicine 03/08/24
[2024-06-24 07:33] LABS: CRP High Sensitivity 0.2 mg/L
[2024-06-24 17:59] LABS: Homocysteine 4.8 umol/L (<10.4)
[2024-06-27 04:13] LABS: Methylmalonic Acid 72 nmol/L (55-335)
[2024-06-28 10:44] LABS: Anti Nuclear Antibody Screen NEGATIVE (NEGATIVE)
[2024-06-29 13:09] LABS: Vitamin D 25-OH, D2 <4 ng/mL; Vitamin D 25-OH, D3 28 ng/mL; Vitamin D 25-OH, Total 28 ng/mL (30-100)
== END 2024-06-23 11:07 | disposition home or self-care (01) ==
LOC: HO.LAB 11:06
PROVIDERS: PCP Internal Medicine; Visit Provider Nurse Practitioner Family
DX: D64.9 Anemia, unspecified (principal); M25.50 Pain in unspecified joint; R21 Rash and other nonspecific skin eruption; G40.909 Epilepsy, unspecified, not intractable, without status epilepticus; R53.83 Other fatigue
CPT/HCPCS: 36415; 82306; 82607; 82746; 83090; 83921; 85652; 86038; 86141; 86431

== ENCOUNTER 2024-12-23 11:17 | Outpatient (AMB) | payer OTHER, SELFPAY ==
--- NOTE | 2024-12-23 11:19 | A.OFFVIS_ITS ---
Vital Signs 12/23/24 11:20 Height 5 ft 1 in Weight 283 lb 2 oz BMI 53.5 BP 128/84 Blood Pressure Location Rt brachial Position Sitting Pulse 70 Pulse Source Pulse Oximeter Pulse Oximetry (%) 96 Oxygen Delivery Method Room Air Intake Visit Reasons: 6 mnts f/u appt Intake Note: Patient presents 6 month follow up for seizure/migraines Petrology Teacher Required: No Accompanied by: Self / Same As Patient Allergies amoxicillin Allergy (Mild, Verified 12/23/24 11:19) thrush lactose Allergy (Unknown, Verified 12/23/24 11:19) Unknown simvastatin Allergy (Unknown, Verified 12/23/24 11:19) Unknown Medication List - Last Reconciled 12/23/24 by TERRY Jon amitriptyline 10 mg PO BEDTIME anakinra 100 mg subcut DAILY ascorbic acid (vitamin C) 500 mg PO DAILY 30 days aspirin 500 mg PO Q6H cetirizine 10 mg PO DAILY cholecalciferol (vitamin D3) 50 mcg PO DAILY clonazepam 1 tab in cheek prn seizure lasting > 2 minutes, MR x's 1 translingually . PRN; 30 days MDD 2 cyanocobalamin (vitamin B-12) 1,000 mcg PO DAILY ezetimibe (Zetia) 10 mg PO DAILY hydrocortisone 2.5% appl topical BID levetiracetam (Keppra) 1,500 mg PO Q12H metformin 500 mg PO DAILY naproxen sodium 550 mg PO Q12H PRN 30 days rosuvastatin mg PO topiramate 50 mg PO BID 30 days ubrogepant (Ubrelvy) 50 - 100 mg (0.5 - 1 x 100 mg) PO ONCE PRN 30 days HPI Comments Details: 39-year-old female presenting with follow-up for migraines, iron deficiency anemia. Per review of most recent PCP note, patient has had rheumatology consult for possible autoimmune etiology of recurrent pericarditis, however workup was unremarkable. Patient continues follow-up with cardiology. Patient reports she continues to have migraine, but increase. She is compliant with amitriptyline and topiramate. Using Ubrelvy as needed with effect. She does still have plans to become possible. Patient denies any interval seizure activity. Follow-up lab work in May 2024 showed persistent mild anemia, with ferritin level 10. PFSH Medical History HLD (hyperlipidemia) Surgical History H/O knee surgery H/O brain surgery H/O section Hx of bilateral breast reduction surgery Hx laparoscopic cholecystectomy Family History Maternal Grandmother Breast cancer in female Maternal Grandfather Cancer, colon Father Heart attack Son Seizure Diabetes Autism Social History Alcohol intake: never Patient Tobacco Use Status: Never used Tobacco Physical Exam Vital Signs: Last Vital Signs Pulse 70 12/23/24 11:20 BP 128/84 12/23/24 11:20 Pulse Ox 96 12/23/24 11:20 Oxygen Delivery Method Room Air 12/23/24 11:20 BMI result Body Mass Index 53.5 Const General: cooperative and no acute distress Orientation/consciousness: patient oriented x3 Resp Effort & Inspection: normal respiratory effort and able to speak in complete sentences Neuro General: patient oriented x3 Cranial nerves: Yes CN's II-XII intact bilaterally Cognition (Neuro): normal cognition Psych Appearance: grossly normal Mental Status: mental status grossly normal Speech and movement: Normal speech and movement present Affect: normal affect Attitude: cooperative Assessment & Plan Assessment & Plan (1) Migraine without aura: Code(s): G43.009 - Migraine without aura, not intractable, without status migrainosus Category: Medical Qualifiers: Status migrainosus presence: without status migrainosus Intractability: not intractable Qualified Code(s): G43.009 - Migraine without aura, not intractable, without status migrainosus (2) Seizure disorder: Code(s): G40.909 - Epilepsy, unspecified, not intractable, without status epilepticus Category: Medical (3) History of brain tumor: Comment: s/p resection and radiation Code(s): Z87.898 - Personal history of other specified conditions Category: Medical (4) Fatigue: Code(s): R53.83 - Other fatigue Category: Medical Qualifiers: Fatigue type: unspecified Qualified Code(s): R53.83 - Other fatigue (5) Anemia: Code(s): D64.9 - Anemia, unspecified Category: Medical Qualifiers: Anemia type: unspecified type Qualified Code(s): D64.9 - Anemia, unspecified Plan Previous work-up: In-lab PSG - normal. EEG- unremarkable Brain MRI w/wo- unremarkable w/ exception of known right frontal craniotomy and encephalomalacia. For anemia: * Continue iron supplements as prescribed. * Took follow-up labs * We will request hematology consult for evaluation of alternate anemia treatments For seizure: * Continue Keppra 1500mg q 12hrs * Clonazepam 2mg ODT for breakthrough seizure lasting > 2 min. ? For migraine prevention: * Continue ear plugs- foam or reusable versions such as Loop- to help w/ sleep and noise sensitivity. * May try green light bulbs- to help w/ light sensitivity. * Continue Amitriptyline 10mg qhs * Increase Topiramate to 50mg bid- may help reduce seizure risk as well. * TX contraindications- CGRP MaBs, depakote/topiramate- d/t desire for For acute migraine treatment: * Continue Ubrelvy 100mg prn, MR in 2hrs, max 200mg/day * TX contraindications- Triptans d/t pericarditis, seizure d/o, depakote/topiramate- d/t desire for f/u in 6 months or sooner prn Orders: Orders Comprehensive Valatie. Panel Fast 12/23/24 D64.9 - Anemia, unspecified, E55.9 - Vitamin D deficiency, unspecified, E66.01 - Morbid (severe) obesity due to excess calories, G40.909 - Epilepsy, unspecified, not intractable, without status epilepticus, Z68.43 - Body mass index [BMI] 50.0-59.9, adult Complete Blood Count Auto Diff 12/23/24 D64.9 - Anemia, unspecified, E55.9 - Vitamin D deficiency, unspecified, E66.01 - Morbid (severe) obesity due to excess calories, G40.909 - Epilepsy, unspecified, not intractable, without status epilepticus, Z68.43 - Body mass index [BMI] 50.0-59.9, adult Ferritin 12/23/24 D64.9 - Anemia, unspecified, E55.9 - Vitamin D deficiency, unspecified, E66.01 - Morbid (severe) obesity due to excess calories, G40.909 - Epilepsy, unspecified, not intractable, without status epilepticus, Z68.43 - Body mass index [BMI] 50.0-59.9, adult IRON PROFILE 12/23/24 D64.9 - Anemia, unspecified, E55.9 - Vitamin D deficiency, unspecified, E66.01 - Morbid (severe) obesity due to excess calories, G40.909 - Epilepsy, unspecified, not intractable, without status epilepticus, Z68.43 - Body mass index [BMI] 50.0-59.9, adult Vitamin B12 and Folate 12/23/24 D64.9 - Anemia, unspecified, E55.9 - Vitamin D deficiency, unspecified, E66.01 - Morbid (severe) obesity due to excess calories, G40.909 - Epilepsy, unspecified, not intractable, without status epilepticus, Z68.43 - Body mass index [BMI] 50.0-59.9, adult Referrals Hematology & Oncology Referral D64.9 - Anemia, unspecified Medications: New topiramate 50 mg PO BID 60 caps 6RF 30 days naproxen sodium 550 mg PO Q12H PRN 30 tabs 6RF migraine attack 30 days ascorbic acid (vitamin C) Take with iron supplement 500 mg PO DAILY 30 caps 3RF 30 days D50.9 - Iron deficiency anemia, unspecified Refilled ubrogepant (Ubrelvy) take at onset of migraine, may repeat in 2hrs (may take w/ Ibuprofen) 50 - 100 mg (0.5 - 1 x 100 mg) PO ONCE PRN 16 tabs 3RF migraine headache 30 days Discontinued topiramate Discontinued Reason: Doctor's Order 50 mg (2 x 25 mg) PO BEDTIME 30 days 60 tabs 3RF Coding Level of Care Code Est Pt Level 4 (97110) Diagnoses Migraine without aura and without status migrainosus, not intractable G43.009 Status migrainosus presence: without status migrainosus Intractability: not intractable Seizure disorder G40.909 History of brain tumor Z87.898 Fatigue, unspecified type R53.83 Fatigue type: unspecified Anemia, unspecified type D64.9 Anemia type: unspecified type
[2024-12-23 11:20] VITALS: BP 128/84; PULSE 70; O2SAT 96; BMI 53.5
--- OUTSIDE RECORDS SUMMARY | 2024-12-23 12:36 | XMS_ITS | Clinical Summary ---
Author Organization [address] [place] [address] [place] [phone] Phone Care Team Providers Care Head Of Marketing Name Role Phone Mi Ornelas MD Primary Care Provider [phone] Allergies Active Allergy Reactions Criticality Noted Date Comments Amoxicillin 12/05/2021 Atorvastatin Itching 08/15/2015 Lactose 12/05/2021 Other reaction(s): N+V Simvastatin High 03/12/2012 Other Reaction(s): Hives/Urticaria Medications acetaminophen (TYLENOL) 500 mg tablet Take 1 tablet (500 mg total) by mouth every 6 (six) hours if needed. 4 Active cetirizine (ZyrTEC) 10 mg tablet Take 1 tablet (10 mg total) by mouth 1 (one) time each day. 3 Active hydrocortisone 2.5 % cream Apply locally twice a day 3 Active SUMAtriptan (IMITREX) 100 mg tablet TAKE 1 TABLET BY MOUTH EVERY DAY NEEDED MIGRAINE 0 Active ibuprofen (ADVIL,MOTRIN) 600 mg tablet Take 1 Tablet by mouth 3 times daily as needed for Pain. 3 Active metoprolol tartrate (LOPRESSOR) 25 mg tablet Take 1 tablet (25 mg total) by mouth 2 (two) times a day. Active Ubrelvy 100 mg tablet Take 1 tablet (100 mg total) by mouth 1 (one) time if needed. 4 Active amitriptyline (ELAVIL) 25 mg tablet TAKE 1 TABLET BY MOUTH EVERYDAY AT BEDTIME 90 tablet 3 5 Active levETIRAcetam (KEPPRA) 1,000 mg tablet TAKE 1 TABLET BY MOUTH TWICE A DAY 60 tablet 5 5 Active cholecalciferol (VITAMIN D-3) 50 mcg (2,000 unit) tablet Take 1 tablet (2,000 Units total) by mouth 1 (one) time each day. 90 tablet 3 5 Active anakinra (Kineret) 100 mg/0.67 mL injection INJECT 100MG UNDER THE SKIN DAILY 20.1 mL 3 5 Active rosuvastatin (CRESTOR) 10 mg tablet Take 1 tablet (10 mg total) by mouth at bedtime. 90 tablet 3 5 Active cyanocobalamin (VITAMIN B-12) 1,000 mcg tablet TAKE 1 TABLET BY MOUTH EVERY DAY 90 tablet 3 5 Active ezetimibe (ZETIA) 10 mg tablet TAKE 1 TABLET BY MOUTH EVERY DAY 90 tablet 1 5 Active metFORMIN (GLUCOPHAGE) 500 mg tablet TAKE 1 TABLET BY MOUTH EVERY DAY WITH BREAKFAST 90 tablet 1 5 Active ferrous sulfate 325 mg (65 mg elemental iron) tablet TAKE 1 TABLET BY MOUTH 3 TIMES A DAY. 270 tablet 5 Active ondansetron (ZOFRAN) 4 mg tablet Take 1 tablet (4 mg total) by mouth every 8 (eight) hours if needed for nausea or vomiting for up to 7 days. 20 tablet 5 12/23/19 25 Active Problems Problem Noted Date Diagnosed Date NSVT (nonsustained ventricul ar tachycardia) (CMS/HCC V24, CMS/HCC V28) 03/15/2024 Overview (03/15/2024): - 4 beat run seen during hospitalization at [facility] in January 2024 - Echocardiogram most recently at [facility] on 02/04/2024 showed mild, concentric left ventricular [...] twice daily Morbid obesity with BMI of 5 0.0-59.9, adult ([facility] V24, [facility] V28) 03/08/2024 Mixed hyperlipidemia 01/04/2022 Overview (03/08/2024): Last Assessment & Plan: Reasonable LDL without known coronary disease. Continue statin and Zetia Assessment & Plan (03/15/2024 12:54 PM EST): Reasonable LDL control, continue current Crestor and Zetia. Prediabetes 01/04/2022 Seizure disorder ([facility] V24, [facility] V28) 12/2021 Vitamin B 12 deficiency 01/04/2022 Vitamin D deficiency 01/04/2022 Recurrent idiopathic pericarditis 01/01/2022 Overview (03/15/2024): - Dr Mac from cardiology met her in consultation at [facility] in November 2021 when she came in for atypical chest pain - Prior to that she had had an admission at [facility] for similar atypical chest pain - She ruled out with serial cardiac enzymes both times; at [facility], we also checked an ESR and CRP [...] 2 weeks when she was rehospitalized at [facility] from 02/02/2024 to 02/04/2024-again with atypical chest [...] Encounters Date Type Department Care Team Description 12/13/2024 Telephone Internal Medicine - [address] [place] [address] Mi Ornelas MD 11/15/2024 11:45 AM EDT Office Visit Walk-In Clinic - [facility] [address] [place] [phone] Jose Fonseca PA Bacterial conjunctivitis of both eyes (Primary Dx); Hordeolum externum of right upper eyelid 10/13/2024 9:30 AM EDT Office Visit Internal Medicine [facility] [address] [facility] [address] [place] [address] Mi Ornelas MD Mixed hyperlipidemia (Primary Dx); Type 2 diabetes mellitus without complication, without long-term current use of insulin ([facility] V24, [facility] V28); Anemia, unspecified type; Recurrent idiopathic pericarditis 10/12/2024 Telephone Internal Medicine - [place] [address] [facility] [address] [place] [address] Milton Colon MA from Last 3 Months Immunizations Name Administration [...] obesity with BMI of 5 0.0-59.9, adult (CMS/HCC V24, [facility] V28) DX:Morbid obesity wit h BMI of 50.0-59.9, adult (HCC) History of brain cancer DX:Histo ry of brain cancer; COMMENT: tumor removal followed via radiation age 22 Seizure disorder (CMS/HCC V2 4, CMS/HCC V28) DX:Seizure disorder (HCC) Mixed hyperlipidemia DX:Mixed hy perlipidemia [...] for your loved ones. For example, child watch attendant or elderly care for an older adult? [...] Sign Reading Time Taken Comments Blood Pressure 122/83 11/15/2024 11:55 AM EDT Pulse 77 11/15/2024 11:55 AM EDT Temperature 36.3 C (97.3 F) 11/15/2024 11:55 AM EDT Respiratory Rate - - Oxygen Saturation 98% 11/15/2024 11:55 AM EDT Inhaled Oxygen Concentration - - Weight 126 kg (277 lb 3.2 oz) 10/13/2024 9:24 AM EDT Height 154.9 cm (5' 1 ) 04/12/2024 9:33 AM EST Body Mass Index 52.38 04/12/2024 9:33 AM EST Plan of Treatment Upcoming Encounters Date Type Department Care Team (Late st Contact Info) Description 12/30/2024 9:20 AM EDT Office Visit [facility] - [address] [facility] [address] [place] [phone] India Mac MD [address] [place] [address] 03/17/2025 9:00 AM EST Office Visit Internal Medicine - [place] [address] [place] [phone] Mi Onrelas MD [address] [place] [address] Health Maintenance Due Date Last Done Comments Breast Cancer Screening 1984 Diabetes: Annual Foot Exam 1994 Diabetes: Annual Retina Eye Exam 1994 Pneumococcal Vaccine: Pediatrics (0 to 5 Years) and At-Risk Patients (6 to 49 Years) (2 of 2 - PCV) 08/26/2011 08/25/2010 HIV Screening 04/06/2022 Hepatitis C Screening 04/06/2022 Hepatitis B Vaccines (2 of 3 - 19+ 3-dose series) 07/02/2023 06/04/2023, 06/04/2023 IPV Vaccines (2 of 3 - Adult catch-up series) 07/02/2023 06/04/2023 HPV Vaccines (3 - 3-dose SCDM series) 08/27/2023 06/04/2023, 02/22/2021 COVID-19 Vaccine ( season) 2023 06/04/2023, 10/16/2020, 09/23/2020 Diabetes: Annual GFR (Glomerular Filtration Rate) 10/02/2024 10/03/2023, 10/03/2023, 10/03/2023 Diabetes: Annual Urine Albumin-Creatinine Ratio (uACR) 10/13/2024 Influenza Vaccine (#1) 2024 02/22/2021, 2010 Social Influencers of Health Screening 04/06/2025 04/06/2024 Diabetes: Blood Sugar Control Test (HGBA1C) 04/14/2025 10/13/2024, 04/12/2024, 12/11/2023, Additional history exists Cervical Cancer Screening: Pap Smear 10/09/2025 10/09/2022 Cholesterol Screening (Lipid Panel) 10/13/2029 10/13/2024, 10/03/2023, 10/03/2023 DTaP,Tdap,and Td Vaccines (2 - Tdap) 06/04/2033 06/04/2023 HIB Vaccines Aged Out 06/04/2023 No longer eligi ble based on patient's age to complete this topic Depression Screening Completed 10/08/2024, 04/30/19 Hepatitis A Vaccines Aged Out No long er eligible based on patient's age to complete this topic MMR Vaccines Aged Out No longer eligi ble based on patient's age to complete this topic Meningococcal ACWY Vaccine Aged Out N o longer eligible based on patient's age to complete this topic Meningococcal B Vaccine Aged Out No l onger eligible based on patient's age to complete this topic RSV Immunization Patients Under 20 months Aged Out No longer eligible based on patient's age to complete this topic Varicella Vaccines Aged Out No longer eligible based on patient's age to complete this topic Procedures Procedure Name Priority Date/Time Associated Diagnosis Comments HEMOGLOBIN A1C Routine 10/13/2024 9:52 AM EDT Mixed hyperlipidemia Type 2 diabetes mellitus without complication, without long-term current use of insulin ([facility] V24, [facility] V28) LIPID PANEL WITH REFLEX TO DIRECT LDL Routine 10/13/2024 9:52 AM EDT Mixed hyperlipidemia Type 2 diabetes mellitus without complication, without long-term current use of insulin ([facility] V24, [facility] V28) ANNUAL BMP BLOOD TEST Routine 10/03/2023 DEPRESSION SCREENING Routine 04/30/2023 PAP SMEAR Routine 10/09/2022 from Last 3 Months or Most Recently Relevant to Health Maintenance Results * (ABNORMAL) Lipid panel with reflex to direct LDL (10/13/2024 9:52 AM EDT) Cholesterol 290(H) 0 - 200 mg/dL LAB CHEMISTRY METHOD 10/13/2024 3:01 PM EDT [facility] Triglycerides 161(H) 0 - 150 mg/dL LAB CHEMISTRY METHOD 10/13/2024 3:01 PM EDT [facility] HDL 56 >=40 mg/dL LAB CHEMISTRY METHOD 10/13/2024 3:01 PM EDT [facility] LDL Calculated 202(H) 0 - 100 mg/dL LAB CHEMISTRY METHOD 10/13/2024 3:01 PM [facility] VLDL Cholesterol Ezra 32.2 mg/dL LAB CHEMISTRY METHOD 10/13/2024 3:01 PM EDT [facility] Non HDL Chol. (LDL+VLDL) 234(H) <145 mg/dL LAB CHEMISTRY METHOD 10/13/2024 3:01 PM EDT [facility] Chol/HDL Ratio 5.2(H) 0.0 - 4.4 LAB CHEMISTRY METHOD 10/13/2024 3:01 PM EDT [facility] Blood Venous blood specimen / Unknown Venipuncture / Unknown 10/13/2024 9:52 AM EDT 10/13/2024 9:52 AM EDT Mi Ornelas MD LAB BLOOD ORDERABLES Final Res ult [facility] [address] [place] [address], [place] [phone] * Hemoglobin A1c (10/13/2024 9:52 AM EDT) [facility] Hemoglobin A1C 6.4 <6.5 % LAB CHEMISTRY METHOD 10/13/2024 3:13 PM EDT [facility] Mean Bld Glu Estim. 137 mg/dL LAB CHEMISTRY METHOD 10/13/2024 3:13 PM EDT [facility] Blood Venous blood specimen / Unknown Venipuncture / Unknown 10/13/2024 9:52 AM EDT 10/13/2024 9:52 AM EDT Mi Ornelas MD LAB BLOOD ORDERABLES Final Res ult [facility] [address] [place] [address], [place] [phone] * Annual BMP Blood Test (10/03/2023) [facility] Annual BMP Blood Test abstracted Pravin Maradiaga MD HEALTH MAINTENANCE Final Result * Depression Screening (04/30/2023) [facility] Depression Screening abstracted Historical Provider HEALTH MAINTENANCE Final Result * Pap Smear (10/09/2022) Pap smear no interpretation , abstracted Historical Provider HEALTH MAINTENANCE Final Result from Last 3 Months or Most Recently Relevant to Health Maintenance Insurance [facility] [employer] Care Teams Head Of Marketing Relationship Specialty Start Date End Date Mi Ornelas MD [address] [facility] [address] [place] [address] PCP - General Internal Medicine 03/08/24
--- OUTSIDE RECORDS SUMMARY | 2024-12-23 12:36 | XMS_ITS ---
Author Name [facility] Organization Unknown Care Team Organization Name Specialty Phone Email Start Date End Da te [facility] Primary Care 03/05/2022 12/15/19 24
--- OUTSIDE RECORDS SUMMARY | 2024-12-23 12:36 | XMS_ITS | Encounter Summary ---
Author Organization [facility] Address [address] [place] [address] Care Team Providers Care Game Moderator Name Role Phone Mi Ornelas MD Primary Care Provider [phone] Reason for Visit * Reason Onset Date Comments Med Refill 12/13/2024 Encounter Details Date Type Department Care Team (Late st Contact Info) Description 12/13/2024 Telephone Internal Medicine - [place] [address] [facility] [address] [place] [phone] Mi Ornelas MD [address] [place] [address] Social History Tobacco Use Types Packs/Day Years [...] for your loved ones. 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 [...] on file Sexual Orientation Not on file documented as of this encounter Ordered Prescriptions Prescription Sig Dispense Quantity Refills Last Filled Start Date End Date ondansetron (ZOFRAN) 4 mg tablet Take 1 tablet (4 mg total) by mouth every 8 (eight) hours if needed for nausea or vomiting for up to 7 days. 20 tablet 12/15/2024 documented in this encounter Progress Notes * Mi Ornelas MD - 12/15/2024 6:07 AM EDT Sent zofran * Dagoberto Orourke MA - 12/14/2024 11:04 AM EDT Pt requesting Zofran not active on med list please advise * Elizabeth Sigala - 12/13/2024 4:48 PM EDT Pt requesting refill for Zofran 10mg (Not on med list) documented in this encounter Plan of Treatment Upcoming Encounters Date Type Department Care Team (Late st Contact Info) Description 12/30/2024 9:20 AM EDT Office Visit [facility] [place] [facility] [address] [facility] [address] [place] [address] India Mac MD [address] [place] [address] [address] [place] [address] 03/17/2025 9:00 AM EST Office Visit Internal Medicine - [place] [address] [facility] [address] [place] [phone] Mi Ornelas MD [address] [place] [phone] documented as of this encounter Visit Diagnoses Not on filedocumented in this encounter Additional Health Concerns Assessment Noted Time PHQ-9 Depression Total Score: 0 10/09/19 25 8:48 AM EDT documented as of this encounter Care Teams Game Moderator Relationship Specialty Start Date End Date Mi Ornelas MD [address] [facility] [address] [place] [phone] PCP - General Internal Medicine 03/08/24 documented as of this encounter
== END 2024-12-23 12:15 | disposition home or self-care (01) ==
LOC: HO.HSMS 11:17
PROVIDERS: PCP Internal Medicine; Visit Provider Nurse Practitioner Family
DX: G43.009 Migraine without aura, not intractable, without status migrainosus (principal); G40.909 Epilepsy, unspecified, not intractable, without status epilepticus; Z87.898 Personal history of other specified conditions; R53.83 Other fatigue; D64.9 Anemia, unspecified
CPT/HCPCS: 99214

== ENCOUNTER → 2024-12-23 11:17 | Outpatient (BNVA) | payer OTHER, SELFPAY | PROVIDERS: PCP Internal Medicine; Visit Provider Nurse Practitioner Family | DX: G43.009 Migraine without aura, not intractable, without status migrainosus (principal); G40.909 Epilepsy, unspecified, not intractable, without status epilepticus; D64.9 Anemia, unspecified; R53.83 Other fatigue; E66.01 Morbid (severe) obesity due to excess calories; Z68.43 Body mass index [BMI] 50.0-59.9, adult | CPT/HCPCS: 99212 ==